=== PATIENT | male | born 1990 | race Two or more races ===

== ENCOUNTER 2019-02-11 06:11 | Day surgery (SDC) | payer OTHER ==
[2019-02-11] MEDS ORDERED: DUI500 PO (17:43)
[2019-02-11] MEDS ORDERED: OXYC1TAB9 PO (17:43)
== END 2019-02-11 23:40 | disposition home or self-care (01) ==
LOC: CIR.AMB 06:11
DX: S82.62XA Displaced fracture of lateral malleolus of left fibula, initial encounter for closed fracture (principal); S93.422A Sprain of deltoid ligament of left ankle, initial encounter